=== PATIENT | male | born 1940 | race African-American/Black ===

== ENCOUNTER 2016-10-26 11:01 | Emergency (ER) | payer MEDICARE ==
[~2016-10-26] VITALS: Ht 170.2 cm; Wt 77.0 kg
[2016-10-26 12:44] LABS: BASOPHILS % 1.2 % (0.0-2.0); EOSINOPHILS % 2.6 % (0.0-5.0); HEMATOCRIT. 37.8 % (42.0-52.0); HEMOGLOBIN. 12.8 g/dL (14.0-18.0); LYMPHOCYTES % 12.2 % (20.0-50.0); MEAN CORPUSCULAR HEMOGLOBIN 28.9 pg (28.0-32.0); MEAN PLATELET VOLUME 7.2 fl (7.4-10.4); PLATELET 332 x1000/uL (130-400); RED BLOOD CELL COUNT 4.44 mill/uL (4.7-6.1); RED CELL DISTRIBUTION WIDTH 17.9 % (11.6-14.6); WHITE BLOOD COUNT 8.4 x1000/uL (4.5-11.0)
[2016-10-26 12:53] LABS: ALANINE AMINOTRANSFERASE 20 IU/L (13-61); ALBUMIN 3.6 g/dL (3.4-5.0); ANION GAP 9; CALCIUM 8.8 mg/dL (8.5-10.1); CARBON DIOXIDE 32 mEq/L (21-32); CHLORIDE 101 mEq/L (98-107); INDEX HEMOLYSI 1 (1-3); INDEX ICTERIC 1 (1-4); INDEX LIPEMIC 1 (1-3); LIPASE 84 IU/L (73-393); UREA NITROGEN BLOOD 13 mg/dL (7-21); eGFR > 60 mL/min (>60)
[2016-10-26 12:57] LABS: TROPONIN I < 0.02 ng/mL (0.00-0.04)
[2016-10-26 14:16] VITALS: BP 155/82
== END 2016-10-26 14:26 | disposition left against medical advice (07) ==
LOC: ER 11:12
DX: E11.649 Type 2 diabetes mellitus with hypoglycemia without coma (principal); J44.9 Chronic obstructive pulmonary disease, unspecified; Z85.46 Personal history of malignant neoplasm of prostate
CPT/HCPCS: 36415; 80053; 82962; 83690; 84484; 85025; 93005; 99285

== ENCOUNTER 2018-04-11 13:18 | Inpatient (IN) | payer MEDICARE ==
[2018-04-11] VITALS (14 sets, daily range): BP systolic 107–138; BP diastolic 54–73
[~2018-04-11] VITALS: Ht 177.8 cm; Wt 63.5 kg
[~2018-04-11 13:18] MED LIST: LORAZEPAM 2MG/ML CPJ ONE
[2018-04-11] MEDS ORDERED: SODIUM CHLORIDE 0.9% 1,000 ML IV ONE ×2 (13:22→13:32)
[2018-04-11] MEDS ORDERED: LORAZEPAM 2MG/ML CPJ IV STA (13:22)
[2018-04-11] MEDS ORDERED: LORAZEPAM 2MG/ML CPJ IV ONE (13:30)
[2018-04-11] MEDS ORDERED: LEVETIRACETAM 500MG PREMIX 100 ML IV ONE (13:30)
[2018-04-11] MEDS ORDERED: ACETAMINOPHEN 650MG SUPP PR ONE (13:45)
[2018-04-11 14:16] LABS: INR 1.1; PROTHROMBIN TIME 10.9 sec (9.1-11.1)
[2018-04-11 14:21] LABS: BG BASE EXCESS -14.3 mmol/L (-2.0-2.0); BG CARBOXYHEMOGLOBIN 0.6 % (0.5-1.5); BG FRACTION INSPIRED OXYGEN 99.9; BG HCO3 ACT 13.4 mmol/L (22.0-26.0); BG METHEMOGLOBIN 0.4 % (0.0-1.5); BG PH 7.166 (7.350-7.450); BG SAMPLE SITE RIGHT RADIAL; BG TOTAL HEMOGLOBIN 12.1 g/dL (12.0-18.0); BG VENT MODE MASK - NRB
[2018-04-11 14:21] LABS: AMMONIA 34 uMol/L (<32); CHLORIDE 96 mEq/L (98-107)
[2018-04-11 14:26] LABS: CREATINE KINASE 500 IU/L (39-308); ETHANOL BLOOD < 10 mg/dL
[2018-04-11 14:31] LABS: CARBAMAZEPINE < 0.5 ug/mL (4-12); CLARITY URINE CLEAR (CLEAR); COLOR URINE YELLOW (YELLOW); KETONES URINE 1+ (NEGATIVE); LEUKOCYTE ESTERASE URINE NEGATIVE (NEGATIVE); NITRITE URINE NEGATIVE (NEGATIVE); OCCULT BLOOD URINE TRACE (NEGATIVE); PHENOBARBITAL < 2.1 ug/mL (15.0-40.0); PROTEIN URINE NEGATIVE (NEGATIVE); SPECIFIC GRAVITY URINE 1.018 (1.005-1.030); UROBILINOGEN URINE 0.2 E.U./dL (0.2-1.0)
[2018-04-11 14:33] LABS: VALPROIC ACID < 3.0 ug/mL (50-100)
[2018-04-11 14:44] LABS: *AMPHETAMINES SCREEN URINE NEGATIVE (NEGATIVE); *BARBITURATES SCREEN URINE NEGATIVE (NEGATIVE); *BENZODIAZEPINES SCREEN URINE NEGATIVE (NEGATIVE); *COCAINE SCREEN URINE NEGATIVE (NEGATIVE); CANNABINOID URINE SCREEN NEGATIVE (NEGATIVE); METHADONE URINE SCREEN NEGATIVE (NEGATIVE); OPIATES URINE SCREEN NEGATIVE (NEGATIVE); PHENCYCLIDINE URINE SCREEN NEGATIVE (NEGATIVE)
[2018-04-11] MEDS ORDERED: INSULIN REGULAR (DRIP) 100 UNITS in SODIUM CHLORIDE 0.9% 100 ML IV ONE (14:52)
[2018-04-11] MEDS ORDERED: SODIUM CHLORIDE 0.9% 1,000 ML IV STA (14:52)
[2018-04-11 15:13] LABS: HEMATOCRIT. 37.4 % (42.0-52.0); HEMOGLOBIN. 11.6 g/dL (14.0-18.0); MEAN CORPUSCULAR HEMOGLOBIN 28.9 pg (28.0-32.0); PLATELET 321 x1000/uL (130-400); RED BLOOD CELL COUNT 4.02 mill/uL (4.7-6.1)
[2018-04-11 16:44] LABS: PHOSPHORUS 5.9 mg/dL (2.5-4.9)
[2018-04-11 17:08] LABS: PLATELET ESTIMATE NORMAL
[2018-04-11 17:14] LABS: BETA HYDROXYBUTYRATE 13.8 mMol/L (0.0-0.3)
[2018-04-11] MEDS ORDERED: LORAZEPAM 2MG/ML CPJ IV PRN (22:15)
[2018-04-11] MEDS ORDERED: PIPERACILLIN/TAZOBACTAM 2.25 G in DEXTROSE 5% WATER 50 ML IV SCH (22:30)
[2018-04-11] MEDS ORDERED: BISACODYL 5MG TABLET PO PRN (22:30)
[2018-04-11] MEDS ORDERED: MORPHINE SULFATE 4 MG/ML CPJ (NOT FOR IM USE) IV PRN (22:30)
[2018-04-11] MEDS: METHYLPREDNISOLONE SOD SUCC 40 MG/ML VIAL IV SCH (22:40)
[2018-04-11] MEDS: PANTOPRAZOLE SODIUM 40 MG/VIAL IV SCH (22:40)
[2018-04-11] MEDS ORDERED: ACETAMINOPHEN 650MG/20.3ML UDC NG PRN (22:45)
[2018-04-11 22:53] LABS: PHOSPHORUS 3.6 mg/dL (2.5-4.9)
[2018-04-11] MEDS ORDERED: SODIUM CHLORIDE 0.45% 1,000 ML IV SCH (23:00)
[2018-04-11] MEDS ORDERED: DEXTROSE 50% WATER 50ML SYRINGE IV PRN (23:30)
[2018-04-11] MEDS: ALBUTEROL (0.083%) 2.5MG/3ML NEB HHN SCH (23:41)
[2018-04-11] MEDS: BLOOD SUGAR DIAGNOSTIC STRIP TEST SCH (23:59)
[2018-04-12] VITALS (102 sets, daily range): BP systolic 115–176; BP diastolic 52–89
[2018-04-12] MEDS: INSULIN LISPRO 100 UNITS/ML SUBCUT SCH ×4 (00:02→18:00)
[2018-04-12 00:15] LABS: BG BASE EXCESS -1.7 mmol/L (-2.0-2.0); BG CARBOXYHEMOGLOBIN 0.8 % (0.5-1.5); BG DEOXYHEMOGLOBIN 16.2 % (0.0-5.0); BG FRACTION INSPIRED OXYGEN 21; BG HCO3 ACT 24.8 mmol/L (22.0-26.0); BG METHEMOGLOBIN 0.3 % (0.0-1.5); BG OXYGEN SATURATION 83.6 % (92.0-98.5); BG OXYHEMOGLOBIN 82.7 % (94.0-97.0); BG PCO2 49.6 mmHg (35.0-45.0); BG PH 7.317 (7.350-7.450); BG PO2 47.5 mmHg (75.0-100.0); BG SAMPLE SITE RIGHT RADIAL; BG TOTAL HEMOGLOBIN 12.2 g/dL (12.0-18.0); BG VENT MODE ROOM AIR
[2018-04-12] MEDS: DEXT 5%/0.45% NACL 1000ML 1,000 ML IV SCH ×2 (00:55→18:47)
[2018-04-12] MEDS ORDERED: HYDRALAZINE 20MG/ML VIAL IV PRN (02:45)
[2018-04-12] MEDS: ALBUTEROL (0.083%) 2.5MG/3ML NEB HHN SCH ×6 (04:30→23:56)
[2018-04-12] MEDS: BLOOD SUGAR DIAGNOSTIC STRIP TEST SCH ×3 (05:33→17:54)
[2018-04-12 05:53] LABS: HEMATOCRIT. 35.4 % (42.0-52.0); HEMOGLOBIN. 11.7 g/dL (14.0-18.0); MEAN PLATELET VOLUME 7.8 fl (7.4-10.4); PLATELET 292 x1000/uL (130-400); RED BLOOD CELL COUNT 4.03 mill/uL (4.7-6.1); RED CELL DISTRIBUTION WIDTH 16.8 % (11.6-14.6)
[2018-04-12] MEDS ORDERED: PIPERACILLIN/TAZOBACTAM 2.25 G in DEXTROSE 5% WATER 50 ML IV SCH ×3 (06:00)
[2018-04-12 06:15] LABS: CHLORIDE 116 mEq/L (98-107)
[2018-04-12 06:42] LABS: BG BASE EXCESS -3.2 mmol/L (-2.0-2.0); BG CARBOXYHEMOGLOBIN 0.8 % (0.5-1.5); BG DEOXYHEMOGLOBIN 16.9 % (0.0-5.0); BG METHEMOGLOBIN 0.4 % (0.0-1.5); BG OXYGEN SATURATION 82.9 % (92.0-98.5); BG OXYHEMOGLOBIN 81.9 % (94.0-97.0); BG PCO2 52.1 mmHg (35.0-45.0); BG PH 7.281 (7.350-7.450); BG PO2 49.8 mmHg (75.0-100.0); BG SAMPLE SITE RIGHT RADIAL; BG TOTAL HEMOGLOBIN 12.6 g/dL (12.0-18.0); BG VENT MODE MASK - VENTI
[2018-04-12] MEDS ORDERED: PIPERACILLIN/TAZ 2.25G PREMIX 50 ML IV SCH (08:00)
[2018-04-12 08:25] LABS: BG BASE EXCESS -0.4 mmol/L (-2.0-2.0); BG BILEVEL POS AIRWAY PRESSURE 15/5; BG CARBOXYHEMOGLOBIN 1.2 % (0.5-1.5); BG DEOXYHEMOGLOBIN 5.3 % (0.0-5.0); BG HCO3 ACT 26.5 mmol/L (22.0-26.0); BG METHEMOGLOBIN 0.3 % (0.0-1.5); BG OXYGEN SATURATION 94.6 % (92.0-98.5); BG OXYHEMOGLOBIN 93.2 % (94.0-97.0); BG PCO2 53.5 mmHg (35.0-45.0); BG PH 7.313 (7.350-7.450); BG PO2 77.3 mmHg (75.0-100.0); BG SAMPLE SITE RIGHT RADIAL; BG TOTAL HEMOGLOBIN 12.5 g/dL (12.0-18.0); BG VENT MODE MASK - BIPAP; BG VENT RATE 18 set
[2018-04-12] MEDS ORDERED: ENOXAPARIN 30MG/0.3ML SYR SUBCUT SCH (09:00)
[2018-04-12] MEDS: LEVETIRACETAM 500MG TABLET PO SCH ×2 (09:16→20:14)
[2018-04-12] MEDS: PANTOPRAZOLE SODIUM 40 MG/VIAL IV SCH (09:16)
[2018-04-12] MEDS: METHYLPREDNISOLONE SOD SUCC 40 MG/ML VIAL IV SCH ×2 (09:16→20:14)
[2018-04-12 10:45] LABS: PLATELET ESTIMATE NORMAL
[2018-04-12] MEDS ORDERED: AMOX500T2 MT (12:44)
[2018-04-12] MEDS ORDERED: AMLO10TA80 MT (12:44)
[2018-04-12] MEDS ORDERED: KETO5DRO80 OP (12:44)
[2018-04-12] MEDS ORDERED: PRED1DRO OP (12:44)
[2018-04-12] MEDS ORDERED: ASPI-1159 MT (12:44)
[2018-04-12] MEDS ORDERED: OFLO5DRO3 OP (12:44)
[2018-04-12] MEDS ORDERED: IBUP-2030 MT (12:44)
[2018-04-12] MEDS ORDERED: INSLIS SUBCUT (12:44)
[2018-04-12] MEDS ORDERED: MONT10TA24 MT (12:44)
[2018-04-12] MEDS ORDERED: BENA20TA10 MT (12:44)
[2018-04-12] MEDS ORDERED: METF-414 MT (12:44)
[2018-04-12] MEDS ORDERED: BICA50TA7 MT (12:44)
[2018-04-12] MEDS ORDERED: TAMS0.4C31 MT (12:44)
[2018-04-12] MEDS ORDERED: PIOG15TA23 MT (12:44)
[2018-04-12] MEDS ORDERED: FUROSEMIDE 40MG/4ML VIAL IVP NR (14:00)
[2018-04-12] MEDS ORDERED: THIAMINE HCL 100 MG in SODIUM CHLORIDE 0.9% 49 ML IV NR (16:00)
[2018-04-12] MEDS: ASPIRIN 81MG TABLET PO SCH (16:16)
[2018-04-12] MEDS: PIPERACILLIN/TAZ 2.25G PREMIX 50 ML IV SCH ×2 (16:16→20:14)
[2018-04-12 17:04] LABS: CHLORIDE 120 mEq/L (98-107)
[2018-04-12] MEDS ORDERED: INS NPH/REG HM 70-30 100 UNITS/ML 10ML VIAL (HUMULIN 70-30) SUBCUT NR (19:00)
[2018-04-12] MEDS: DESMOPRESSIN ACETATE 4MCG/ML AMP SUBCUT SCH (20:15)
[2018-04-13] VITALS (70 sets, daily range): BP systolic 96–157; BP diastolic 34–88
[2018-04-13] MEDS ORDERED: INSULIN REGULAR (DRIP) 100 UNITS in SODIUM CHLORIDE 0.9% 100 ML IV SCH (00:39)
[2018-04-13] MEDS ORDERED: DEXTROSE 50% WATER 50ML SYRINGE IV PRN ×3 (00:45→11:00)
[2018-04-13] MEDS: BLOOD SUGAR DIAGNOSTIC STRIP TEST SCH ×10 (01:37→16:30)
[2018-04-13] MEDS: PIPERACILLIN/TAZ 2.25G PREMIX 50 ML IV SCH ×4 (02:59→20:52)
[2018-04-13] MEDS: ALBUTEROL (0.083%) 2.5MG/3ML NEB HHN SCH ×5 (04:09→21:40)
[2018-04-13 06:09] LABS: HEMATOCRIT. 34.7 % (42.0-52.0); HEMOGLOBIN. 11.4 g/dL (14.0-18.0); MEAN CORPUSCULAR HEMOGLOBIN 29.2 pg (28.0-32.0); MEAN CORPUSCULAR VOLUME 88.6 fL (80.0-94.0); MEAN PLATELET VOLUME 7.9 fl (7.4-10.4); PLATELET 258 x1000/uL (130-400); RED BLOOD CELL COUNT 3.92 mill/uL (4.7-6.1); RED CELL DISTRIBUTION WIDTH 16.9 % (11.6-14.6)
[2018-04-13 06:30] LABS: CHLORIDE 120 mEq/L (98-107)
[2018-04-13] MEDS: PANTOPRAZOLE SODIUM 40 MG/VIAL IV SCH (08:32)
[2018-04-13] MEDS: METHYLPREDNISOLONE SOD SUCC 40 MG/ML VIAL IV SCH ×2 (08:32→20:51)
[2018-04-13] MEDS: ENOXAPARIN 40MG/0.4ML SYR SUBCUT SCH (08:33)
[2018-04-13] MEDS: LEVETIRACETAM 500MG TABLET PO SCH ×2 (08:33→20:52)
[2018-04-13] MEDS: DESMOPRESSIN ACETATE 4MCG/ML AMP SUBCUT SCH (08:33)
[2018-04-13] MEDS: ASPIRIN 81MG TABLET PO SCH (08:33)
[2018-04-13 11:16] LABS: NUCLEATED RED BLOOD CELLS 1 /100 WBC; PLATELET ESTIMATE NORMAL
[2018-04-13] MEDS: DEXTROSE 5% WATER 1,000 ML IV SCH (11:27)
[2018-04-13] MEDS: INSULIN LISPRO 100 UNITS/ML SUBCUT SCH ×2 (12:35→17:36)
[2018-04-13] MEDS ORDERED: BLOOD SUGAR DIAGNOSTIC STRIP TEST SCH (14:00)
[2018-04-13 16:10] LABS: BG BASE EXCESS 0.4 mmol/L (-2.0-2.0); BG CARBOXYHEMOGLOBIN 0.4 % (0.5-1.5); BG DEOXYHEMOGLOBIN 7.9 % (0.0-5.0); BG FRACTION INSPIRED OXYGEN 50; BG HCO3 ACT 26.9 mmol/L (22.0-26.0); BG METHEMOGLOBIN 0.3 % (0.0-1.5); BG OXYHEMOGLOBIN 91.4 % (94.0-97.0); BG PCO2 51.8 mmHg (35.0-45.0); BG PH 7.334 (7.350-7.450); BG PO2 66.8 mmHg (75.0-100.0); BG SAMPLE SITE RIGHT RADIAL; BG TOTAL HEMOGLOBIN 12.3 g/dL (12.0-18.0); BG VENT MODE MASK - VENTI
[2018-04-13] MEDS ORDERED: METOPROLOL TARTRATE 25MG TABLET PO NR (16:15)
[2018-04-13 16:27] LABS: AMMONIA < 10 uMol/L (<32)
[2018-04-13 16:30] LABS: PHOSPHORUS 3.3 mg/dL (2.5-4.9)
[2018-04-13] MEDS: DILTIAZEM HCL 30MG TABLET PO SCH ×2 (18:54→23:38)
[2018-04-13] MEDS ORDERED: INSULIN GLARGINE UD 100 UNITS/ML SYR SUBCUT NR (19:00)
[2018-04-13] MEDS ORDERED: METOPROLOL TARTRATE 25MG TABLET PO SCH (21:00)
[2018-04-13] MEDS ORDERED: INSULIN GLARGINE UD 100 UNITS/ML SYR SUBCUT SCH (22:00)
[2018-04-14] VITALS (48 sets, daily range): BP systolic 111–180; BP diastolic 47–135
[2018-04-14] MEDS: INSULIN LISPRO 100 UNITS/ML SUBCUT SCH ×6 (00:04→21:18)
[2018-04-14] MEDS: ALBUTEROL (0.083%) 2.5MG/3ML NEB HHN SCH ×6 (00:47→20:06)
[2018-04-14] MEDS: PIPERACILLIN/TAZ 2.25G PREMIX 50 ML IV SCH ×4 (03:00→21:00)
[2018-04-14] MEDS: BLOOD SUGAR DIAGNOSTIC STRIP TEST SCH ×6 (03:39→20:35)
[2018-04-14] MEDS: DILTIAZEM HCL 30MG TABLET PO SCH ×3 (05:55→17:56)
[2018-04-14 06:16] LABS: HEMATOCRIT. 36.9 % (42.0-52.0); MEAN CORPUSCULAR HEMOGLOBIN 29.1 pg (28.0-32.0); MEAN CORPUSCULAR VOLUME 89.5 fL (80.0-94.0); MEAN PLATELET VOLUME 8.4 fl (7.4-10.4); PLATELET 242 x1000/uL (130-400); RED BLOOD CELL COUNT 4.12 mill/uL (4.7-6.1); RED CELL DISTRIBUTION WIDTH 17.2 % (11.6-14.6)
[2018-04-14 06:47] LABS: CHLORIDE 118 mEq/L (98-107)
[2018-04-14 06:57] LABS: CREATINE KINASE 724 IU/L (39-308); CREATINE KINASE MB FRACTION 2.8 ng/mL (0.5-3.6); HDL CHOLESTEROL 45 mg/dL (40-59); LDL CHOLESTEROL 123 mg/dL (5-100)
[2018-04-14 08:01] LABS: PLATELET ESTIMATE NORMAL
[2018-04-14] MEDS: METHYLPREDNISOLONE SOD SUCC 40 MG/ML VIAL IV SCH ×2 (09:02→21:19)
[2018-04-14] MEDS: PANTOPRAZOLE SODIUM 40 MG/VIAL IV SCH (09:02)
[2018-04-14] MEDS: ASPIRIN 81MG TABLET PO SCH (09:03)
[2018-04-14] MEDS: ENOXAPARIN 40MG/0.4ML SYR SUBCUT SCH (09:03)
[2018-04-14] MEDS: LEVETIRACETAM 500MG TABLET PO SCH ×2 (09:05→21:19)
[2018-04-14] MEDS ORDERED: INSULIN GLARGINE UD 100 UNITS/ML SYR SUBCUT SCH ×2 (10:00→22:00)
[2018-04-14 11:07] LABS: BG BASE EXCESS 0.6 mmol/L (-2.0-2.0); BG CARBOXYHEMOGLOBIN 0.3 % (0.5-1.5); BG DEOXYHEMOGLOBIN 3.4 % (0.0-5.0); BG HCO3 ACT 27.1 mmol/L (22.0-26.0); BG METHEMOGLOBIN 0.3 % (0.0-1.5); BG OXYGEN SATURATION 96.6 % (92.0-98.5); BG PCO2 51.7 mmHg (35.0-45.0); BG PH 7.337 (7.350-7.450); BG PO2 91.9 mmHg (75.0-100.0); BG SAMPLE SITE RIGHT BRACHIAL; BG TOTAL HEMOGLOBIN 12.5 g/dL (12.0-18.0); BG VENT MODE MASK - VENTI
[2018-04-14] MEDS: DEXTROSE 5% WATER 1,000 ML IV SCH (14:05)
[2018-04-14] MEDS ORDERED: VANCOMYCIN 1250MG in DEXTROSE 5% WATER 250ML IV NR (18:30)
[2018-04-14] MEDS: INSULIN GLARGINE UD 100 UNITS/ML SYR SUBCUT SCH (22:18)
[2018-04-15] VITALS (25 sets, daily range): BP systolic 109–209; BP diastolic 48–91
[2018-04-15] MEDS: ALBUTEROL (0.083%) 2.5MG/3ML NEB HHN SCH ×6 (00:10→21:10)
[2018-04-15] MEDS: BLOOD SUGAR DIAGNOSTIC STRIP TEST SCH ×6 (00:12→20:41)
[2018-04-15] MEDS: DILTIAZEM HCL 30MG TABLET PO SCH ×4 (00:24→18:16)
[2018-04-15] MEDS: INSULIN LISPRO 100 UNITS/ML SUBCUT SCH ×6 (00:30→20:49)
[2018-04-15] MEDS: PIPERACILLIN/TAZ 2.25G PREMIX 50 ML IV SCH ×4 (02:37→20:47)
[2018-04-15 08:00] LABS: HEMATOCRIT 35.6 % (42.0-52.0); HEMOGLOBIN 11.6 g/dL (14.0-18.0); MEAN CORPUSCULAR HEMOGLOBIN 29.1 pg (28.0-32.0); MEAN CORPUSCULAR VOLUME 89.2 fL (80.0-94.0); PLATELET 228 x1000/uL (130-400); RED BLOOD CELL COUNT 3.99 mill/uL (4.7-6.1); RED CELL DISTRIBUTION WIDTH 16.8 % (11.6-14.6)
[2018-04-15] MEDS: PANTOPRAZOLE SODIUM 40 MG/VIAL IV SCH (08:17)
[2018-04-15] MEDS: METHYLPREDNISOLONE SOD SUCC 40 MG/ML VIAL IV SCH ×2 (08:17→20:47)
[2018-04-15] MEDS: LEVETIRACETAM 500MG TABLET PO SCH ×2 (08:18→20:47)
[2018-04-15] MEDS: ENOXAPARIN 40MG/0.4ML SYR SUBCUT SCH (08:18)
[2018-04-15] MEDS: ASPIRIN 81MG TABLET PO SCH (08:19)
[2018-04-15 08:28] LABS: CHLORIDE 117 mEq/L (98-107)
[2018-04-15 08:41] LABS: CREATINE KINASE 346 IU/L (39-308); CREATINE KINASE MB FRACTION 1.7 ng/mL (0.5-3.6)
[2018-04-15] MEDS: INSULIN GLARGINE UD 100 UNITS/ML SYR SUBCUT SCH ×2 (11:38→21:45)
[2018-04-15] MEDS ORDERED: VANCOMYCIN 750 MG PREMIX 150 ML IV SCH (12:00)
[2018-04-15] MEDS: DEXTROSE 5% WATER 1,000 ML IV SCH (12:33)
[2018-04-15] MEDS: VANCOMYCIN 1 G PREMIX 200 ML IV SCH (12:52)
[2018-04-15 15:51] LABS: BG CARBOXYHEMOGLOBIN 0.1 % (0.5-1.5); BG DEOXYHEMOGLOBIN 8.1 % (0.0-5.0); BG FRACTION INSPIRED OXYGEN 32; BG HCO3 ACT 28.4 mmol/L (22.0-26.0); BG METHEMOGLOBIN 0.5 % (0.0-1.5); BG OXYGEN SATURATION 91.9 % (92.0-98.5); BG OXYHEMOGLOBIN 91.3 % (94.0-97.0); BG PCO2 52.3 mmHg (35.0-45.0); BG PH 7.353 (7.350-7.450); BG PO2 63.7 mmHg (75.0-100.0); BG SAMPLE SITE LEFT RADIAL; BG TOTAL HEMOGLOBIN 12.4 g/dL (12.0-18.0); BG VENT MODE NASAL CANNULA
[2018-04-16] VITALS (12 sets, daily range): BP systolic 108–150; BP diastolic 50–79
[2018-04-16] MEDS: DILTIAZEM HCL 30MG TABLET PO SCH ×4 (00:16→17:30)
[2018-04-16] MEDS: ALBUTEROL (0.083%) 2.5MG/3ML NEB HHN SCH ×7 (00:59→23:59)
[2018-04-16] MEDS: PIPERACILLIN/TAZ 2.25G PREMIX 50 ML IV SCH ×4 (04:14→20:27)
[2018-04-16] MEDS: VANCOMYCIN 1 G PREMIX 200 ML IV SCH (05:22)
[2018-04-16] MEDS: DEXTROSE 5% WATER 1,000 ML IV SCH (05:24)
[2018-04-16 06:37] LABS: HEMATOCRIT. 35.5 % (42.0-52.0); HEMOGLOBIN. 11.4 g/dL (14.0-18.0); MEAN CORPUSCULAR HEMOGLOBIN 28.7 pg (28.0-32.0); MEAN CORPUSCULAR VOLUME 89.5 fL (80.0-94.0); MEAN PLATELET VOLUME 8.7 fl (7.4-10.4); PLATELET 212 x1000/uL (130-400); RED BLOOD CELL COUNT 3.96 mill/uL (4.7-6.1)
[2018-04-16 06:40] LABS: CHLORIDE 114 mEq/L (98-107)
[2018-04-16 07:00] LABS: VANCOMYCIN TROUGH 10.5 ug/mL (5.0-10.0)
[2018-04-16] MEDS: BLOOD SUGAR DIAGNOSTIC STRIP TEST SCH ×4 (08:04→20:27)
[2018-04-16] MEDS: INSULIN LISPRO 100 UNITS/ML SUBCUT SCH ×4 (08:53→20:57)
[2018-04-16] MEDS: LEVETIRACETAM 500MG TABLET PO SCH ×2 (09:06→20:26)
[2018-04-16] MEDS: ENOXAPARIN 40MG/0.4ML SYR SUBCUT SCH (09:06)
[2018-04-16] MEDS: ASPIRIN 81MG TABLET PO SCH (09:06)
[2018-04-16] MEDS: METHYLPREDNISOLONE SOD SUCC 40 MG/ML VIAL IV SCH ×2 (09:06→20:26)
[2018-04-16] MEDS: PANTOPRAZOLE SODIUM 40 MG/VIAL IV SCH (09:07)
[2018-04-16] MEDS: INSULIN GLARGINE UD 100 UNITS/ML SYR SUBCUT SCH ×2 (10:59→21:01)
[2018-04-16] MEDS ORDERED: DEXTROSE 50% WATER 50ML SYRINGE IV PRN ×2 (11:30)
[2018-04-16 13:42] LABS: PLATELET ESTIMATE NORMAL
[2018-04-16] MEDS ORDERED: FUROSEMIDE 40MG/4ML VIAL IVP NR (14:15)
[2018-04-16] MEDS: VANCOMYCIN 750 MG PREMIX 150 ML IV SCH (17:28)
[2018-04-16 21:12] LABS: BG BASE EXCESS 12.1 mmol/L (-2.0-2.0); BG CARBOXYHEMOGLOBIN 0.6 % (0.5-1.5); BG DEOXYHEMOGLOBIN 7.6 % (0.0-5.0); BG FRACTION INSPIRED OXYGEN 21; BG METHEMOGLOBIN 0.3 % (0.0-1.5); BG OXYGEN SATURATION 92.3 % (92.0-98.5); BG OXYHEMOGLOBIN 91.5 % (94.0-97.0); BG PCO2 49.6 mmHg (35.0-45.0); BG PH 7.491 (7.350-7.450); BG PO2 56.8 mmHg (75.0-100.0); BG SAMPLE SITE RIGHT RADIAL; BG TOTAL HEMOGLOBIN 12.1 g/dL (12.0-18.0); BG VENT MODE ROOM AIR
[2018-04-17] VITALS (12 sets, daily range): BP systolic 110–142; BP diastolic 48–79
[2018-04-17] MEDS: DILTIAZEM HCL 30MG TABLET PO SCH ×5 (01:08→23:34)
[2018-04-17] MEDS: PIPERACILLIN/TAZ 2.25G PREMIX 50 ML IV SCH ×2 (02:36→09:51)
[2018-04-17] MEDS: ALBUTEROL (0.083%) 2.5MG/3ML NEB HHN SCH ×5 (03:17→21:27)
[2018-04-17] MEDS: VANCOMYCIN 750 MG PREMIX 150 ML IV SCH ×2 (04:13→17:41)
[2018-04-17 06:34] LABS: HEMATOCRIT 32.5 % (42.0-52.0); HEMOGLOBIN 10.8 g/dL (14.0-18.0); MEAN CORPUSCULAR HEMOGLOBIN 29.6 pg (28.0-32.0); MEAN CORPUSCULAR VOLUME 89.3 fL (80.0-94.0); PLATELET 194 x1000/uL (130-400); RED BLOOD CELL COUNT 3.64 mill/uL (4.7-6.1); RED CELL DISTRIBUTION WIDTH 16.8 % (11.6-14.6)
[2018-04-17 07:11] LABS: CHLORIDE 108 mEq/L (98-107)
[2018-04-17] MEDS: BLOOD SUGAR DIAGNOSTIC STRIP TEST SCH ×4 (08:27→21:08)
[2018-04-17] MEDS: INSULIN LISPRO 100 UNITS/ML SUBCUT SCH ×4 (09:01→21:15)
[2018-04-17] MEDS: LEVETIRACETAM 500MG TABLET PO SCH ×2 (09:51→21:08)
[2018-04-17] MEDS: PANTOPRAZOLE SODIUM 40 MG/VIAL IV SCH (09:51)
[2018-04-17] MEDS: BICALUTAMIDE 50 MG TABLET PO SCH (09:51)
[2018-04-17] MEDS: ASPIRIN 81MG TABLET PO SCH (09:51)
[2018-04-17] MEDS: METHYLPREDNISOLONE SOD SUCC 40 MG/ML VIAL IV SCH ×2 (09:51→21:08)
[2018-04-17] MEDS: ENOXAPARIN 40MG/0.4ML SYR SUBCUT SCH (09:52)
[2018-04-17] MEDS: INSULIN GLARGINE UD 100 UNITS/ML SYR SUBCUT SCH ×2 (11:02→21:27)
[2018-04-17] MEDS: PIPERACILLIN/TAZ 3.375G PREMIX 50 ML IV SCH ×2 (16:25→21:08)
[2018-04-18] VITALS (9 sets, daily range): BP systolic 95–143; BP diastolic 51–79
[2018-04-18] MEDS: ALBUTEROL (0.083%) 2.5MG/3ML NEB HHN SCH ×5 (01:11→21:00)
[2018-04-18] MEDS: PIPERACILLIN/TAZ 3.375G PREMIX 50 ML IV SCH ×4 (03:02→21:45)
[2018-04-18] MEDS: DILTIAZEM HCL 30MG TABLET PO SCH ×3 (05:10→17:56)
[2018-04-18] MEDS: VANCOMYCIN 750 MG PREMIX 150 ML IV SCH (05:31)
[2018-04-18] MEDS: PANTOPRAZOLE SODIUM 40 MG/VIAL IV SCH (10:19)
[2018-04-18] MEDS: ASPIRIN 81MG TABLET PO SCH (10:20)
[2018-04-18] MEDS: METHYLPREDNISOLONE SOD SUCC 40 MG/ML VIAL IV SCH ×2 (10:20→21:45)
[2018-04-18] MEDS: BICALUTAMIDE 50 MG TABLET PO SCH (10:21)
[2018-04-18] MEDS: LEVETIRACETAM 500MG TABLET PO SCH ×2 (10:21→21:45)
[2018-04-18] MEDS: ENOXAPARIN 40MG/0.4ML SYR SUBCUT SCH (10:22)
[2018-04-18] MEDS: INSULIN GLARGINE UD 100 UNITS/ML SYR SUBCUT SCH ×2 (10:27→22:00)
[2018-04-18] MEDS: BLOOD SUGAR DIAGNOSTIC STRIP TEST SCH ×3 (12:30→21:00)
[2018-04-18] MEDS: INSULIN LISPRO 100 UNITS/ML SUBCUT SCH ×3 (13:36→21:58)
[2018-04-18 17:22] LABS: HEMATOCRIT 34.2 % (42.0-52.0); MEAN CORPUSCULAR VOLUME 90.1 fL (80.0-94.0); PLATELET 231 x1000/uL (130-400); RED CELL DISTRIBUTION WIDTH 16.9 % (11.6-14.6)
[2018-04-18] MEDS: VANCOMYCIN 1 G PREMIX 200 ML IV SCH (17:51)
[2018-04-18 18:35] LABS: CHLORIDE 106 mEq/L (98-107)
[2018-04-19] VITALS (12 sets, daily range): BP systolic 103–159; BP diastolic 55–84
[2018-04-19] MEDS: DILTIAZEM HCL 30MG TABLET PO SCH ×4 (00:12→18:39)
[2018-04-19] MEDS: ALBUTEROL (0.083%) 2.5MG/3ML NEB HHN SCH ×6 (00:15→20:10)
[2018-04-19] MEDS: PIPERACILLIN/TAZ 3.375G PREMIX 50 ML IV SCH (03:36)
[2018-04-19] MEDS: VANCOMYCIN 1 G PREMIX 200 ML IV SCH ×2 (05:43→18:34)
[2018-04-19 07:06] LABS: HEMATOCRIT 32.3 % (42.0-52.0); HEMOGLOBIN 10.5 g/dL (14.0-18.0); MEAN CORPUSCULAR HEMOGLOBIN 29.1 pg (28.0-32.0); MEAN CORPUSCULAR VOLUME 89.7 fL (80.0-94.0); PLATELET 218 x1000/uL (130-400); RED CELL DISTRIBUTION WIDTH 16.5 % (11.6-14.6)
[2018-04-19 07:32] LABS: CHLORIDE 105 mEq/L (98-107)
[2018-04-19] MEDS: BLOOD SUGAR DIAGNOSTIC STRIP TEST SCH ×4 (08:21→21:00)
[2018-04-19] MEDS: ASPIRIN 81MG TABLET PO SCH (08:44)
[2018-04-19] MEDS: BICALUTAMIDE 50 MG TABLET PO SCH (08:44)
[2018-04-19] MEDS: METHYLPREDNISOLONE SOD SUCC 40 MG/ML VIAL IV SCH ×2 (08:44→21:02)
[2018-04-19] MEDS: PANTOPRAZOLE SODIUM 40 MG/VIAL IV SCH (08:44)
[2018-04-19] MEDS: INSULIN LISPRO 100 UNITS/ML SUBCUT SCH ×4 (08:44→21:15)
[2018-04-19] MEDS: LEVETIRACETAM 500MG TABLET PO SCH ×2 (08:45→21:02)
[2018-04-19] MEDS: ENOXAPARIN 40MG/0.4ML SYR SUBCUT SCH (08:46)
[2018-04-19] MEDS: INSULIN GLARGINE UD 100 UNITS/ML SYR SUBCUT SCH ×2 (10:16→21:20)
[2018-04-20] VITALS (11 sets, daily range): BP systolic 127–172; BP diastolic 52–95
[2018-04-20] MEDS: DILTIAZEM HCL 30MG TABLET PO SCH ×4 (00:48→18:01)
[2018-04-20] MEDS: ALBUTEROL (0.083%) 2.5MG/3ML NEB HHN SCH ×6 (01:53→20:28)
[2018-04-20 04:06] LABS: HEMATOCRIT 34.4 % (42.0-52.0); HEMOGLOBIN 11.6 g/dL (14.0-18.0); MEAN CORPUSCULAR HEMOGLOBIN 29.4 pg (28.0-32.0); MEAN CORPUSCULAR VOLUME 87.4 fL (80.0-94.0); PLATELET 275 x1000/uL (130-400); RED BLOOD CELL COUNT 3.94 mill/uL (4.7-6.1); RED CELL DISTRIBUTION WIDTH 15.9 % (11.6-14.6)
[2018-04-20 04:10] LABS: CHLORIDE 104 mEq/L (98-107)
[2018-04-20] MEDS: VANCOMYCIN 1 G PREMIX 200 ML IV SCH ×2 (06:55→17:56)
[2018-04-20] MEDS ORDERED: PANTOPRAZOLE 40MG DR TABLET PO SCH (07:30)
[2018-04-20] MEDS: BLOOD SUGAR DIAGNOSTIC STRIP TEST SCH ×3 (07:30→17:56)
[2018-04-20] MEDS: INSULIN LISPRO 100 UNITS/ML SUBCUT SCH ×3 (08:00→18:02)
[2018-04-20] MEDS: ASPIRIN 81MG TABLET PO SCH (09:04)
[2018-04-20] MEDS: METHYLPREDNISOLONE SOD SUCC 40 MG/ML VIAL IV SCH (09:04)
[2018-04-20] MEDS: ENOXAPARIN 40MG/0.4ML SYR SUBCUT SCH (09:05)
[2018-04-20] MEDS: LEVETIRACETAM 500MG TABLET PO SCH (09:05)
[2018-04-20] MEDS: BICALUTAMIDE 50 MG TABLET PO SCH (09:05)
[2018-04-20] MEDS: INSULIN GLARGINE UD 100 UNITS/ML SYR SUBCUT SCH (10:38)
== END 2018-04-20 20:58 | disposition home or self-care (01) | DRG 177 ==
LOC: ER 13:18 → EDBD 13:18 → MICUSO 13:44 → EDBEDREQSVC 15:25 → EDBEDREQ 15:25 → ENRESERV 19:44 → 5EST 04-14 23:15
PROVIDERS: ADMIT Internal Medicine; ATTEND Internal Medicine
PROC: 5A09357 Assistance with Respiratory Ventilation, Less than 24 Consecutive Hours, Continuous Positive Airway Pressure (ICD-10-PCS; principal; 2018-04-12)
PROC: 5A09357 Assistance with Respiratory Ventilation, Less than 24 Consecutive Hours, Continuous Positive Airway Pressure (ICD-10-PCS; 2018-04-13)
PROC: 5A09357 Assistance with Respiratory Ventilation, Less than 24 Consecutive Hours, Continuous Positive Airway Pressure (ICD-10-PCS; 2018-04-14)
PROC: 0DH67UZ Insertion of Feeding Device into Stomach, Via Natural or Artificial Opening (ICD-10-PCS; 2018-04-14)
DX: J69.0 Pneumonitis due to inhalation of food and vomit (principal); E11.00 Type 2 diabetes mellitus with hyperosmolarity without nonketotic hyperglycemic-hyperosmolar coma (NKHHC); E11.10 Type 2 diabetes mellitus with ketoacidosis without coma; G93.41 Metabolic encephalopathy; I50.33 Acute on chronic diastolic (congestive) heart failure; J96.91 Respiratory failure, unspecified with hypoxia; J96.92 Respiratory failure, unspecified with hypercapnia; N17.9 Acute kidney failure, unspecified; E46 Unspecified protein-calorie malnutrition; C78.00 Secondary malignant neoplasm of unspecified lung; E87.1 Hypo-osmolality and hyponatremia; I13.0 Hypertensive heart and chronic kidney disease with heart failure and stage 1 through stage 4 chronic kidney disease, or unspecified chronic kidney disease; D68.59 Other primary thrombophilia; I47.1 Supraventricular tachycardia; G40.909 Epilepsy, unspecified, not intractable, without status epilepticus; N18.9 Chronic kidney disease, unspecified; E11.22 Type 2 diabetes mellitus with diabetic chronic kidney disease; E87.5 Hyperkalemia; D64.9 Anemia, unspecified; E86.0 Dehydration; N28.89 Other specified disorders of kidney and ureter; N40.0 Benign prostatic hyperplasia without lower urinary tract symptoms; C61 Malignant neoplasm of prostate; R74.0 Nonspecific elevation of levels of transaminase and lactic acid dehydrogenase [LDH]; N30.90 Cystitis, unspecified without hematuria; Z74.01 Bed confinement status; Z91.19 Patient's noncompliance with other medical treatment and regimen; Z68.20 Body mass index [BMI] 20.0-20.9, adult
CPT/HCPCS: 36415; 36600; 51702; 70551; 71045; 74176; 76770; 78580; 80048; 80061; 80156; 80165; 80184; 80185; 80202; 80305; 80307; 80329; 82010; 82140; 82375; 82550; 82553; 82570; 82805; 82962; 83036; 83605; 83735; 83880; 83930; 83935; 84100; 84153; 84300; 84443; 84484; 85027; 85379; 86592; 92610; 93005; 93306; 93970; 94618; 94640; 94660; 96361; 96374; 96375; 97116; 97163; 97530; 99291; A6261; C9113; G0482; J0360; J1650; J1815; J1940; J1953; J2060; J2543; J2597; J2920; J3370; J3411; J3490; J7030; J7050; J7060; J7070; J7611; G0103